=== PATIENT | female | born 1980 | race Caucasian/White ===

== ENCOUNTER 2019-10-23 15:34 | Emergency (ER) | payer OTHER, SELFPAY ==
--- NOTE | ~2019-10-23 | XR_ITS ---
EXAMINATION: XR abdomen/kub 1V EXAM DATE: 10/23/2019 16:14 INDICATION: Right flank pain. TECHNIQUE: Frontal projection(s) of the abdomen for interpretation. There is no prior study for katie martin. FINDINGS: There is moderate amount of colonic stool and gas. No small bowel dilation, nonobstructiv e bowel gas pattern. There are no suspicious calcifications identified. There is no organomegaly suspected. The bones are unremarkable. IMPRESSION: No suspicious calcifications. Moderate amount of colonic stool. Reviewed, dictated and finalized at location A.
--- NOTE | ~2019-10-23 | XR_ITS ---
EXAMINATION: XR chest 2V EXAM DATE: 10/23/2019 16:15 INDICATION: Cough, flank pain on the right. TECHNIQUE: Frontal and lateral projections of the chest obtained and reviewed. There is no prior tayler dy for comparison. FINDINGS: The lungs are clear. There are no pleural effusions. The cardiomediastinal silhouette is within normal limits. There is no pneumothorax suspected. Unremarkable bones. IMPRESSION: No acute cardiopulmonary findings. Reviewed, dictated and finalized at location A.
[2019-10-23 15:41] VITALS: BP 120/74; PULSE 66; RESP 16; TEMP 36.4; O2SAT 99
--- NOTE | 2019-10-23 15:44 | ED.BACK ---
HPI - Back Pain/Injury General Chief Complaint: Back Pain/Injury Stated Complaint: back pain Source: patient and RN notes reviewed Mode of arrival: ambulatory Limitations: no limitations History of Present Illness HPI Narrative: The patient, non-smoker/nondrinker, presents with right back pain. Patient states she has a 2-day history of right back and flank pain that is mild, worse with sitting, better slightly standing with activity-and so is colicky. No injury or overuse, except caretaking a 2-year-old , 25-[id number]-epe children. No fever, shortness of breath, radiation; no bowel?bladder symptoms, no hematuria, frequency/urgency/dysuria, no N/V/D/dehydration,, no vaginal discharge-but she is on day 2 of her menstrual cycle Related Data Allergies Allergy/AdvReac Type Severity Reaction Status Date / Time No Known Allergies Allergy Unknown Unverified 10/23/19 15:45 Review of Systems Review of Systems: Narrative: General/Constitutional: No weight loss,fever Eyes: N0: Redness,discharge Ears/Nose/Throat: No: Epistaxis,ear discharge Respiratory: Denies: Hemoptysis Gastrointestinal: No Vomiting, Bleeding-rectal Skin: No Lumps, eruption Neurologic: No Focal Weakness,Sz Hematologic: Denies: Petechiae/Purpura Psychiatric: No: Suicida ideationl All Other Systems: Reviewed and Negative [facility] Family History Family History (Updated 10/14/15 @ 23:19 by DOCTOR UNKNOWN) Father Hypertension Family history of diabetes mellitus in first degree relative Grandparent Family history of malignant neoplasm of stomach Family history of heart disease in male family member before age 55 Social History Social History Smoking status: Never smoker Alcohol intake: current Comments At time of signature, agree with nursing past medical, surgical, social and family history. There is no relevant family history pertinent to the presenting complaint Exam Narrative: Exam Narrative: General Appearance: Well appearing, Conjunctiva clear Ears: External ear normal Nose: Normal nose Mouth/Throat: Normal appearing, Normal lips Neck: Supple Respiratory: Airway patent Abdomen: Soft, mild right CVA tenderness. Musculoskeletal: Normal strength no footdrop, 5/5 : EH L-FHL, gastroc-AT Spine/Back: mild decreased range of motion; Skin: Normal color Neurological: A&O x3, Normal mood Course Vital Signs Vital signs: Vital Signs Temperature 97.5 F L 10/23/19 15:41 Pulse Rate 66 10/23/19 15:41 Respiratory Rate 16 10/23/19 15:41 Blood Pressure 120/74 10/23/19 15:41 Pulse Oximetry 99 10/23/19 15:41 Temperature 97.5 F L 10/23/19 15:41 Pulse Rate 66 10/23/19 15:41 Respiratory Rate 16 10/23/19 15:41 Blood Pressure 120/74 10/23/19 15:41 Pulse Oximetry 99 10/23/19 15:41 MDM - Back Pain/Injury Lab Data Labs: Urine Glucose Negative Reference Range: Negative Urine Bilirubin Negative Reference Range: Negative Urine Ketone Negative Reference Range: Negative Urine Specific [place] 1.030 Reference Range:1.001-1.035 Urine Blood 3+ Reference Range: Negative * * Urine pH 6.0 Reference Range: 5.0-9.0 Urine Protein Negative Reference Range: Negative Urine Urobilinogen 0.2 Reference Range: 0.2-1.0 Urine Nitrate Negative Reference Range: Negative Urine Leukocyte Negative Reference Range: Negative Urine Color Light/Pale,Yellow Reference Range: Yellow Urine Characteristics Cloudy Discharge Plan Discharge Clinical Impression: Acute right flank pain Patient Disposition: Acute Care Hospital Condition: Stable Additional Instructions: Go to
[2019-10-23] MEDS: KETOROLAC (*BKC) 60 MG/2 ML VIAL IM (16:14)
== END 2019-10-23 16:54 | disposition short-term general hospital (02) ==
PROVIDERS: Emergency Provider Emergency Medicine; PCP Physician Assistant
DX: R10.9 Unspecified abdominal pain (principal)
CPT/HCPCS: 71046; 74018; 81003; 96372; 99213; G0463; J1885

== ENCOUNTER 2021-07-25 08:25 | Outpatient (RCR) | payer OTHER, SELFPAY ==
[2021-07-25] MEDS: RHO(D) IMMUNE GLOBULIN 300 MCG/2 ML SYRINGE IM (08:50)
== END 2021-07-25 09:00 | disposition home or self-care (01) ==
LOC: ANHLAB 08:25
PROVIDERS: PCP Physician Assistant; Visit Provider Obstetrics & Gynecology
DX: O20.0 Threatened abortion (principal); Z29.13 Encounter for prophylactic Rho(D) immune globulin; O36.0190 Maternal care for anti-D [Rh] antibodies, unspecified trimester, not applicable or unspecified; Z3A.00 Weeks of gestation of pregnancy not specified
CPT/HCPCS: 36415; 84702; 85461; 90384; 96372; J2790

== ENCOUNTER → 2022-07-30 13:52 | Outpatient (CLI) | payer OTHER, SELFPAY ==
--- NOTE | ~2022-07-30 | CT_ITS ---
CT of the Abdomen and Pelvis: Indication: Abdominal pain Technique: 2.5 mm axial scans were obtained through the abdomen and pelvis following intravenous adm inistration of 100 cc of Omnipaque 350. Dose reduction technique was used on this scan by utilizing a utomated exposure control and iterative reconstruction technique. The dose-length product (DLP) was 5 45.88 mGy-cm. Findings: Scans through the lung bases are unremarkable. The liver, spleen, pancreas, gallbladder, adrenals and kidneys are within normal limits. No evidence of aortic aneurysm. No lymphadenopathy. No bowel obstruction or bowel wall thickening. There is fat attenuation with minimal surrounding infl ammatory change adjacent to the proximal sigmoid colon, most consistent with mild epiploic appendagit is.. Images through the pelvis were performed. Urinary bladder unremarkable. No adnexal mass evident. No a scites. Impression: Findings most consistent with mild epiploic appendagitis adjacent to the proximal sigmoid colon. Reviewed, dictated and finalized at [facility]. Impression: Findings most consistent with mild epiploic appendagitis adjacent to the proxim al sigmoid colon.
== END ==
PROVIDERS: PCP Physician Assistant; Visit Provider Physician Assistant
DX: R10.32 Left lower quadrant pain (principal)
CPT/HCPCS: 74177; Q9967